=== PATIENT | female | born 1995 | race Two or more races ===

== ENCOUNTER → 2019-10-23 | Outpatient (CLI) | payer OTHER | END | disposition home or self-care (01) | LOC: RX STUDY 10:15 | DX: N93.9 Abnormal uterine and vaginal bleeding, unspecified (principal); Q50.6 Other congenital malformations of fallopian tube and broad ligament ==

== ENCOUNTER 2022-02-08 09:21 | Outpatient (CLI) | payer OTHER | END 2022-02-08 09:23 | disposition home or self-care (01) | LOC: RX STUDY 09:21 | PROVIDERS: ATTEND Dermatology | DX: Z93.2 Ileostomy status (principal) ==